=== PATIENT | female | born 1940 | race Caucasian/White ===

== ENCOUNTER 2017-11-28 12:49 | Inpatient (IN) | payer MEDICARE, BC, OTHER ==
[2017-11-28] MEDS: NS 500 ML IV (13:15)
[2017-11-28 13:26] LABS: BASO % 0.2 % (0.0-1.0); HEMATOCRIT 41.4 % (36.0-47.0); HEMOGLOBIN 13.4 g/dl (12.0-15.5); IMMATURE GRANULOCYTE % 0.4 % (0-3.0); LYMPH # 0.6 10^3/uL (1.5-4.5); MEAN CORPUSCULAR HEMOGLOBIN 29.1 pg (27.0-33.0); MEAN CORPUSCULAR HGB CONC 32.4 g/dl (32.0-36.5); MONO # 0.7 10^3/uL (0.0-0.8); MONO % 5.7 % (0.0-5.0); NEUTROPHILS # 11.3 10^3/uL (1.8-7.7); NEUTROPHILS % 88.7 % (36.0-66.0); PLATELET COUNT, AUTOMATED 196 10^3/uL (150-450); RED CELL DISTRIBUTION WIDTH 13.1 % (11.5-14.5); WHITE BLOOD COUNT 12.7 10^3/uL (4.0-10.0)
[2017-11-28 13:48] LABS: INR 1.01; PARTIAL THROMBOPLASTIN TIME 28.4 SECONDS (25.4-37.6); PROTHROMBIN TIME 13.4 SECONDS (12.1-14.4)
[2017-11-28 13:53] LABS: ALBUMIN 3.5 GM/DL (3.2-5.2); ALBUMIN/GLOBULIN RATIO 1.17 (1.00-1.93); ALKALINE PHOSPHATASE 63 U/L (45-117); ALT/SGPT 29 U/L (12-78); AMYLASE 43 U/L (25-115); ANION GAP 7 MEQ/L (8-16); AST/SGOT 25 U/L (7-37); BILIRUBIN,DIRECT 0.2 MG/DL (0.0-0.2); BILIRUBIN,TOTAL 0.7 MG/DL (0.2-1.0); BLOOD UREA NITROGEN 17 MG/DL (7-18); CALCIUM LEVEL 8.2 MG/DL (8.8-10.2); CARBON DIOXIDE LEVEL 26 MEQ/L (21-32); CHLORIDE LEVEL 108 MEQ/L (98-107); CPK CREATINE PHOSPHOKINASE 373 U/L (26-192); CREATININE FOR GFR 0.53 MG/DL (0.55-1.30); GLOMERULAR FILTRATION RATE > 60.0 (>39); GLUCOSE, FASTING 156 MG/DL (70-100); LIPASE 111 U/L (73-393); SODIUM LEVEL 141 MEQ/L (136-145); TOTAL PROTEIN 6.5 GM/DL (6.4-8.2); TROPONIN I < 0.02 NG/ML (< 0.10)
[2017-11-28 13:54] LABS: CK-MB VALUE MASS 2.1 NG/ML (<3.6); MB/CK RELATIVE INDEX 0.56 (< OR =4)
[2017-11-28] MEDS ORDERED: ISOVUE-370 76% 100ML VIAL (Q9967) As Ordered (14:01)
[2017-11-28] MEDS: PROMETHAZINE INJ 25 MG/ML VIAL (J2550) IV (14:14)
[2017-11-28 19:21] LABS: CPK CREATINE PHOSPHOKINASE 360 U/L (26-192); TROPONIN I < 0.02 NG/ML (< 0.10)
[2017-11-28 19:22] LABS: CK-MB VALUE MASS 1.1 NG/ML (<3.6)
[2017-11-28 19:41] LABS: KETONE, URINE AUTO RFX NEGATIVE (NEGATIVE); LEUKOCYTE ESTERASE UR AUTO RFX NEGATIVE (NEGATIVE); MUCUS, URINE RFX SMALL (NEGATIVE); NITRITE, URINE AUTO RFX NEGATIVE (NEGATIVE); RBC, URINE AUTO RFX 2 /HPF (0-3); SQUAM EPITHELIAL CELL UR AURFX 1 /HPF (0-6); WBC, URINE AUTO RFX 1 /HPF (0-3)
[2017-11-28 20:18] LABS: SPECIFIC GRAVITY UR AUTO RFX >1.060 (1.002-1.035)
[2017-11-28] MEDS: LISINOPRIL 20 MG TAB PO (20:54)
[2017-11-28] MEDS: PANTOPRAZOLE 40MG INJ (PROTONIX) (C9113) IV (20:54)
[2017-11-28] MEDS: NS 1,000 ML IV (20:54)
[2017-11-28] MEDS: CARVedilol 12.5 MG TAB PO (20:55)
[2017-11-29] MEDS: ACETAMINOPHEN TAB 650MG DOSE (2X325MG) PO ×3 (00:07→13:59)
[2017-11-29 02:12] LABS: BASO % 0.1 % (0.0-1.0); HEMATOCRIT 39.5 % (36.0-47.0); HEMOGLOBIN 12.8 g/dl (12.0-15.5); IMMATURE GRANULOCYTE % 0.4 % (0-3.0); LYMPH # 0.8 10^3/uL (1.5-4.5); MEAN CORPUSCULAR HEMOGLOBIN 29.4 pg (27.0-33.0); MEAN CORPUSCULAR HGB CONC 32.4 g/dl (32.0-36.5); MEAN CORPUSCULAR VOLUME 90.6 fl (80.0-96.0); MONO # 1.6 10^3/uL (0.0-0.8); NEUTROPHILS # 13.3 10^3/uL (1.8-7.7); NEUTROPHILS % 84.5 % (36.0-66.0); PLATELET COUNT, AUTOMATED 165 10^3/uL (150-450); RED BLOOD COUNT 4.36 10^6/uL (4.00-5.40); RED CELL DISTRIBUTION WIDTH 13.3 % (11.5-14.5); WHITE BLOOD COUNT 15.8 10^3/uL (4.0-10.0)
[2017-11-29 02:30] LABS: ESTIMATED AVERAGE GLUCOSE 126 MG/DL (60-110)
[2017-11-29 02:46] LABS: ALBUMIN 3.1 GM/DL (3.2-5.2); ALBUMIN/GLOBULIN RATIO 1.19 (1.00-1.93); ALKALINE PHOSPHATASE 57 U/L (45-117); ALT/SGPT 39 U/L (12-78); ANION GAP 7 MEQ/L (8-16); AST/SGOT 33 U/L (7-37); BILIRUBIN,TOTAL 0.9 MG/DL (0.2-1.0); BLOOD UREA NITROGEN 18 MG/DL (7-18); CALCIUM LEVEL 7.8 MG/DL (8.8-10.2); CARBON DIOXIDE LEVEL 27 MEQ/L (21-32); CHLORIDE LEVEL 108 MEQ/L (98-107); CK-MB VALUE MASS < 1.0 NG/ML (<3.6); CPK CREATINE PHOSPHOKINASE 304 U/L (26-192); CPK CREATINE PHOSPHOKINASE 314 U/L (26-192); CREATININE FOR GFR 0.65 MG/DL (0.55-1.30); GLOMERULAR FILTRATION RATE > 60.0 (>39); GLUCOSE, FASTING 152 MG/DL (70-100); MB/CK RELATIVE INDEX 0.32 (< OR =4); POTASSIUM SERUM 3.8 MEQ/L (3.5-5.1); SODIUM LEVEL 142 MEQ/L (136-145); TOTAL PROTEIN 5.7 GM/DL (6.4-8.2); TROPONIN I < 0.02 NG/ML (< 0.10)
[2017-11-29] MEDS: NS 1,000 ML IV (06:39)
[2017-11-29] MEDS ORDERED: MEROPENEM INJ 500 MG in APPROPRIATE DILUENT 1 EA IV (07:15)
[2017-11-29] MEDS ORDERED: DEXTROSE 50% 50 ML SYRINGE IV (07:30)
[2017-11-29] MEDS ORDERED: GLUCAGON FOR INJ 1 MG VIAL (J1610) SC (07:30)
[2017-11-29] MEDS ORDERED: GLUCOSE 4 GM CHEW TABLET PO (07:30)
[2017-11-29] MEDS ORDERED: GI COCKTAIL 50ML BTL(HYOSCYAMINE/MAALOX/LIDOCAINE VISCOUS)(1:3:1) PO (07:30)
[2017-11-29] MEDS: GI COCKTAIL 50ML BTL(HYOSCYAMINE/MAALOX/LIDOCAINE VISCOUS)(1:3:1) PO (08:00)
[2017-11-29 08:12] LABS: ERYTHROCYTE SEDIMENTATION RATE 11 mm/hr (0-30)
[2017-11-29 08:13] LABS: AMYLASE 24 U/L (25-115)
[2017-11-29 08:15] LABS: LIPASE 54 U/L (73-393)
[2017-11-29 08:19] LABS: LACTIC ACID SEPSIS PROTOCOL 1.4 MMOL/L (0.4-2.0)
[2017-11-29] MEDS: CARVedilol 12.5 MG TAB PO ×2 (08:26→21:55)
[2017-11-29] MEDS: ASPIRIN 81 MG ENTERIC TAB PO (08:26)
[2017-11-29] MEDS: SUCRALFATE SUSP 1GM/10ML UD PO ×4 (08:26→20:08)
[2017-11-29] MEDS: LISINOPRIL 20 MG TAB PO ×2 (08:26→21:00)
[2017-11-29] MEDS: CLOPIDOGREL 75 MG TAB PO (08:27)
[2017-11-29] MEDS: MEROPENEM INJ 1 GM in APPROPRIATE DILUENT 1 EA IV ×3 (08:27→23:23)
[2017-11-29 11:10] LABS: CPK CREATINE PHOSPHOKINASE 305 U/L (26-192); LIPASE 55 U/L (73-393); TROPONIN I < 0.02 NG/ML (< 0.10)
[2017-11-29 11:11] LABS: CK-MB VALUE MASS 1.4 NG/ML (<3.6); MB/CK RELATIVE INDEX 0.45 (< OR =4)
[2017-11-29] MEDS ORDERED: PERCOCET 5MG/325MG TAB PO (11:30)
[2017-11-29] MEDS ORDERED: MORPHINE 4 MG/ML 1ML VIAL/SYRINGE (J2270) IV (11:30)
[2017-11-29 11:55] LABS: BEDSIDE GLUCOSE 144 MG/DL (83-110)
[2017-11-29] MEDS: D5W/0.45% SODIUM CHLORIDE 1,000 ML IV ×2 (12:28→21:56)
[2017-11-29] MEDS: HumaLOG INSULIN (NovoLOG) PER UNIT SC ×3 (12:30→23:22)
[2017-11-29 17:06] LABS: BEDSIDE GLUCOSE 142 MG/DL (83-110)
[2017-11-29] MEDS: PERCOCET 5MG/325MG TAB PO (18:13)
[2017-11-29] MEDS: NICOTINE POLACRILEX 2 MG GUM PO (20:08)
[2017-11-29] MEDS: PANTOPRAZOLE 40MG INJ (PROTONIX) (C9113) IV (20:08)
[2017-11-29 21:37] LABS: BEDSIDE GLUCOSE 158 MG/DL (83-110)
[2017-11-29 23:19] LABS: BEDSIDE GLUCOSE 130 MG/DL (83-110)
[2017-11-30 04:42] LABS: BEDSIDE GLUCOSE 153 MG/DL (83-110)
[2017-11-30 05:56] LABS: BASO % 0.2 % (0.0-1.0); HEMATOCRIT 34.6 % (36.0-47.0); IMMATURE GRANULOCYTE % 0.9 % (0-3.0); LYMPH % 6.2 % (24.0-44.0); MEAN CORPUSCULAR HEMOGLOBIN 29.5 pg (27.0-33.0); MEAN CORPUSCULAR HGB CONC 31.8 g/dl (32.0-36.5); MEAN CORPUSCULAR VOLUME 92.8 fl (80.0-96.0); MONO # 1.5 10^3/uL (0.0-0.8); MONO % 9.7 % (0.0-5.0); NEUTROPHILS # 13.1 10^3/uL (1.8-7.7); PLATELET COUNT, AUTOMATED 131 10^3/uL (150-450); RED BLOOD COUNT 3.73 10^6/uL (4.00-5.40); RED CELL DISTRIBUTION WIDTH 13.4 % (11.5-14.5); WHITE BLOOD COUNT 15.8 10^3/uL (4.0-10.0)
[2017-11-30 06:11] LABS: ALBUMIN 2.5 GM/DL (3.2-5.2); ALBUMIN/GLOBULIN RATIO 0.81 (1.00-1.93); ALKALINE PHOSPHATASE 53 U/L (45-117); ALT/SGPT 30 U/L (12-78); ANION GAP 4 MEQ/L (8-16); AST/SGOT 15 U/L (7-37); BILIRUBIN,TOTAL 0.8 MG/DL (0.2-1.0); BLOOD UREA NITROGEN 19 MG/DL (7-18); CALCIUM LEVEL 7.8 MG/DL (8.8-10.2); CARBON DIOXIDE LEVEL 29 MEQ/L (21-32); CHLORIDE LEVEL 107 MEQ/L (98-107); CREATININE FOR GFR 0.62 MG/DL (0.55-1.30); GLOMERULAR FILTRATION RATE > 60.0 (>39); GLUCOSE, FASTING 148 MG/DL (70-100); POTASSIUM SERUM 3.8 MEQ/L (3.5-5.1); SODIUM LEVEL 140 MEQ/L (136-145); TOTAL PROTEIN 5.6 GM/DL (6.4-8.2)
[2017-11-30 06:25] LABS: MAGNESIUM LEVEL 1.9 MG/DL (1.8-2.4)
[2017-11-30 06:25] LABS: PHOSPHORUS LEVEL 1.7 MG/DL (2.5-4.9)
[2017-11-30] MEDS: HumaLOG INSULIN (NovoLOG) PER UNIT SC ×4 (06:35→20:21)
[2017-11-30] MEDS: D5W/0.45% SODIUM CHLORIDE 1,000 ML IV (06:35)
[2017-11-30] MEDS: SUCRALFATE SUSP 1GM/10ML UD PO ×2 (07:34→11:53)
[2017-11-30] MEDS: MEROPENEM INJ 1 GM in APPROPRIATE DILUENT 1 EA IV ×3 (08:16→23:36)
[2017-11-30] MEDS: LISINOPRIL 20 MG TAB PO ×2 (08:16→20:21)
[2017-11-30] MEDS: PERCOCET 5MG/325MG TAB PO ×3 (08:18→22:11)
[2017-11-30] MEDS: CARVedilol 12.5 MG TAB PO ×3 (08:18→20:27)
[2017-11-30] MEDS ORDERED: FUROSEMIDE 20 MG/2 ML VIAL (J1940) IV (12:00)
[2017-11-30 12:02] LABS: BEDSIDE GLUCOSE 152 MG/DL (83-110)
[2017-11-30] MEDS: SODIUM PHOSPHATE INJ 30 MMOL in D5W 500 ML IV (12:23)
[2017-11-30] MEDS ORDERED: fentaNYL 100 MCG/2 ML INJECTION (J3010) As Ordered ×3 (13:10→17:07)
[2017-11-30] MEDS ORDERED: MIDAZOLAM INJ 2 MG/2 ML VIAL (J2250) As Ordered (13:10)
[2017-11-30] MEDS ORDERED: ROCURONIUM BROMIDE 50 MG/5 ML VIAL As Ordered (13:12)
[2017-11-30] MEDS ORDERED: LIDOCAINE 2% INJ 100 MG/5 ML SDV (FOR ANES.) As Ordered (13:12)
[2017-11-30] MEDS ORDERED: PROPOFOL 200 MG/20 ML VIAL As Ordered (13:12)
[2017-11-30] MEDS ORDERED: ePHEDrine SULFATE 25 MG/5 ML(5MG/ML) SYRINGE As Ordered (14:21)
[2017-11-30] MEDS ORDERED: PHENYLephrine HCL 500 MCG/5 ML (100MCG/ML) SYRINGE (J2370) As Ordered (14:21)
[2017-11-30] MEDS ORDERED: METOCLOPRAMIDE INJ 10MG/2ML VIAL (J2765) As Ordered (14:36)
[2017-11-30] MEDS ORDERED: NEOSTIGMINE 10 MG/10 ML VIAL (J2710) As Ordered (14:39)
[2017-11-30] MEDS ORDERED: GLYCOPYRROLATE INJ 0.2 MG/ML 2 ML VIAL As Ordered (14:39)
[2017-11-30] MEDS ORDERED: ONDANSETRON 4MG/2ML VIAL (J2405) As Ordered (14:39)
[2017-11-30] MEDS: BUPIVACAINE HCL 0.25% 30 ML VIAL As Ordered (15:55)
[2017-11-30 16:24] LABS: BEDSIDE GLUCOSE 187 MG/DL (83-110)
[2017-11-30] MEDS ORDERED: MORPHINE 4 MG/ML 1ML VIAL/SYRINGE (J2270) IV (16:30)
[2017-11-30] MEDS ORDERED: LR 1,000 ML IV (16:45)
[2017-11-30] MEDS ORDERED: ONDANSETRON 4MG/2ML VIAL (J2405) IV (16:45)
[2017-11-30] MEDS ORDERED: NORCO, ANEXSIA 5/325MG TABLET (HYDROcodone/ACETAMINOPHEN) PO (16:45)
[2017-11-30] MEDS ORDERED: PERCOCET 5MG/325MG TAB As Ordered (16:55)
[2017-11-30] MEDS: fentaNYL 100 MCG/2 ML INJECTION (J3010) IV (17:05)
[2017-11-30 18:09] LABS: BEDSIDE GLUCOSE 154 MG/DL (83-110)
[2017-11-30] MEDS: DOCUSATE SODIUM 100 MG CAP PO (20:21)
[2017-11-30 20:25] LABS: BEDSIDE GLUCOSE 131 MG/DL (83-110)
[2017-11-30] MEDS: ONDANSETRON 4MG/2ML VIAL (J2405) IV (23:36)
[2017-12-01] MEDS: ACETAMINOPHEN TAB 650MG DOSE (2X325MG) PO ×4 (02:19→17:39)
[2017-12-01 06:16] LABS: BASO % 0.1 % (0.0-1.0); EOS # 0.1 10^3/uL (0.0-0.50); EOS % 0.5 % (0.0-3.0); HEMATOCRIT 34.1 % (36.0-47.0); HEMOGLOBIN 10.7 g/dl (12.0-15.5); IMMATURE GRANULOCYTE % 0.8 % (0-3.0); LYMPH # 0.9 10^3/uL (1.5-4.5); LYMPH % 7.1 % (24.0-44.0); MEAN CORPUSCULAR HEMOGLOBIN 29.3 pg (27.0-33.0); MEAN CORPUSCULAR HGB CONC 31.4 g/dl (32.0-36.5); MEAN CORPUSCULAR VOLUME 93.4 fl (80.0-96.0); MONO # 1.1 10^3/uL (0.0-0.8); MONO % 8.1 % (0.0-5.0); NEUTROPHILS % 83.4 % (36.0-66.0); PLATELET COUNT, AUTOMATED 144 10^3/uL (150-450); RED BLOOD COUNT 3.65 10^6/uL (4.00-5.40); RED CELL DISTRIBUTION WIDTH 13.2 % (11.5-14.5); WHITE BLOOD COUNT 13.2 10^3/uL (4.0-10.0)
[2017-12-01 06:37] LABS: ALBUMIN 2.3 GM/DL (3.2-5.2); ALBUMIN/GLOBULIN RATIO 0.68 (1.00-1.93); ALKALINE PHOSPHATASE 66 U/L (45-117); ALT/SGPT 30 U/L (12-78); ANION GAP 4 MEQ/L (8-16); AST/SGOT 18 U/L (7-37); BILIRUBIN,TOTAL 0.5 MG/DL (0.2-1.0); BLOOD UREA NITROGEN 15 MG/DL (7-18); CARBON DIOXIDE LEVEL 29 MEQ/L (21-32); CHLORIDE LEVEL 106 MEQ/L (98-107); CREATININE FOR GFR 0.49 MG/DL (0.55-1.30); GLOMERULAR FILTRATION RATE > 60.0 (>39); GLUCOSE, FASTING 108 MG/DL (70-100); POTASSIUM SERUM 3.9 MEQ/L (3.5-5.1); SODIUM LEVEL 139 MEQ/L (136-145); TOTAL PROTEIN 5.7 GM/DL (6.4-8.2)
[2017-12-01] MEDS: LISINOPRIL 20 MG TAB PO ×2 (08:25→20:44)
[2017-12-01] MEDS: PANTOPRAZOLE 40MG TAB (PROTONIX) PO (08:25)
[2017-12-01] MEDS: DOCUSATE SODIUM 100 MG CAP PO ×2 (08:25→20:44)
[2017-12-01] MEDS: CARVedilol 12.5 MG TAB PO ×2 (08:25→20:44)
[2017-12-01] MEDS: MEROPENEM INJ 1 GM in APPROPRIATE DILUENT 1 EA IV ×3 (08:26→23:09)
[2017-12-01] MEDS: HumaLOG INSULIN (NovoLOG) PER UNIT SC ×4 (08:26→20:50)
[2017-12-01 12:06] LABS: BEDSIDE GLUCOSE 105 MG/DL (83-110)
[2017-12-01 17:24] LABS: BEDSIDE GLUCOSE 122 MG/DL (83-110)
[2017-12-01] MEDS: BISACODYL 5 MG TAB PO (17:39)
[2017-12-01] MEDS: PERCOCET 5MG/325MG TAB PO (20:44)
[2017-12-01 20:51] LABS: BEDSIDE GLUCOSE 173 MG/DL (83-110)
[2017-12-02] MEDS: ONDANSETRON 4MG/2ML VIAL (J2405) IV ×2 (04:17→10:00)
[2017-12-02 06:34] LABS: BEDSIDE GLUCOSE 116 MG/DL (83-110)
[2017-12-02] MEDS: ACETAMINOPHEN TAB 650MG DOSE (2X325MG) PO ×2 (06:39→22:01)
[2017-12-02] MEDS: HumaLOG INSULIN (NovoLOG) PER UNIT SC ×4 (07:59→21:00)
[2017-12-02] MEDS: MEROPENEM INJ 1 GM in APPROPRIATE DILUENT 1 EA IV ×2 (08:00→17:00)
[2017-12-02] MEDS: DOCUSATE SODIUM 100 MG CAP PO ×2 (08:00→22:00)
[2017-12-02] MEDS: CARVedilol 12.5 MG TAB PO ×2 (08:01→22:00)
[2017-12-02] MEDS: ASPIRIN 81 MG ENTERIC TAB PO (08:01)
[2017-12-02] MEDS: CLOPIDOGREL 75 MG TAB PO (08:01)
[2017-12-02] MEDS: LISINOPRIL 20 MG TAB PO ×2 (08:02→22:00)
[2017-12-02] MEDS: PANTOPRAZOLE 40MG TAB (PROTONIX) PO (08:02)
[2017-12-02 09:06] LABS: BASO % 0.3 % (0.0-1.0); EOS # 0.1 10^3/uL (0.0-0.50); HEMOGLOBIN 11.7 g/dl (12.0-15.5); IMMATURE GRANULOCYTE % 0.3 % (0-3.0); LYMPH # 0.9 10^3/uL (1.5-4.5); MEAN CORPUSCULAR HEMOGLOBIN 29.2 pg (27.0-33.0); MEAN CORPUSCULAR HGB CONC 32.5 g/dl (32.0-36.5); MEAN CORPUSCULAR VOLUME 89.8 fl (80.0-96.0); MONO # 0.6 10^3/uL (0.0-0.8); MONO % 7.6 % (0.0-5.0); NEUTROPHILS # 6.1 10^3/uL (1.8-7.7); NEUTROPHILS % 78.8 % (36.0-66.0); PLATELET COUNT, AUTOMATED 198 10^3/uL (150-450); RED BLOOD COUNT 4.01 10^6/uL (4.00-5.40); WHITE BLOOD COUNT 7.7 10^3/uL (4.0-10.0)
[2017-12-02 09:47] LABS: ANION GAP 6 MEQ/L (8-16); BLOOD UREA NITROGEN 12 MG/DL (7-18); CALCIUM LEVEL 7.9 MG/DL (8.8-10.2); CARBON DIOXIDE LEVEL 31 MEQ/L (21-32); CHLORIDE LEVEL 106 MEQ/L (98-107); CREATININE FOR GFR 0.44 MG/DL (0.55-1.30); GLOMERULAR FILTRATION RATE > 60.0 (>39); GLUCOSE, FASTING 110 MG/DL (70-100); SODIUM LEVEL 143 MEQ/L (136-145)
[2017-12-02 11:37] LABS: BEDSIDE GLUCOSE 137 MG/DL (83-110)
[2017-12-02 16:29] LABS: BEDSIDE GLUCOSE 87 MG/DL (83-110)
[2017-12-02 21:14] LABS: BEDSIDE GLUCOSE 131 MG/DL (83-110)
[2017-12-02] MEDS: metroNIDAZOLE (FLAGYL) 500 MG TAB PO (22:00)
[2017-12-02] MEDS: CEFDINIR 300 MG CAP (OMNICEF) PO (22:00)
[2017-12-03 06:58] LABS: BASO % 0.3 % (0.0-1.0); EOS # 0.1 10^3/uL (0.0-0.50); EOS % 1.2 % (0.0-3.0); HEMATOCRIT 35.2 % (36.0-47.0); HEMOGLOBIN 11.5 g/dl (12.0-15.5); LYMPH # 1.3 10^3/uL (1.5-4.5); LYMPH % 22.7 % (24.0-44.0); MEAN CORPUSCULAR HEMOGLOBIN 29.6 pg (27.0-33.0); MEAN CORPUSCULAR HGB CONC 32.7 g/dl (32.0-36.5); MEAN CORPUSCULAR VOLUME 90.5 fl (80.0-96.0); MONO # 0.7 10^3/uL (0.0-0.8); MONO % 12.9 % (0.0-5.0); NEUTROPHILS # 3.5 10^3/uL (1.8-7.7); NEUTROPHILS % 61.9 % (36.0-66.0); PLATELET COUNT, AUTOMATED 198 10^3/uL (150-450); RED BLOOD COUNT 3.89 10^6/uL (4.00-5.40); WHITE BLOOD COUNT 5.7 10^3/uL (4.0-10.0)
[2017-12-03 07:05] LABS: ANION GAP 4 MEQ/L (8-16); BLOOD UREA NITROGEN 10 MG/DL (7-18); CARBON DIOXIDE LEVEL 33 MEQ/L (21-32); CHLORIDE LEVEL 107 MEQ/L (98-107); CREATININE FOR GFR 0.49 MG/DL (0.55-1.30); GLOMERULAR FILTRATION RATE > 60.0 (>39); GLUCOSE, FASTING 120 MG/DL (70-100); POTASSIUM SERUM 3.9 MEQ/L (3.5-5.1); SODIUM LEVEL 144 MEQ/L (136-145)
[2017-12-03] MEDS: HumaLOG INSULIN (NovoLOG) PER UNIT SC (07:30)
[2017-12-03] MEDS: DOCUSATE SODIUM 100 MG CAP PO (08:11)
[2017-12-03] MEDS: CEFDINIR 300 MG CAP (OMNICEF) PO (08:11)
[2017-12-03] MEDS: ASPIRIN 81 MG ENTERIC TAB PO (08:11)
[2017-12-03] MEDS: CARVedilol 12.5 MG TAB PO (08:11)
[2017-12-03] MEDS: CLOPIDOGREL 75 MG TAB PO (08:12)
[2017-12-03] MEDS: metroNIDAZOLE (FLAGYL) 500 MG TAB PO (08:12)
[2017-12-03] MEDS: PANTOPRAZOLE 40MG TAB (PROTONIX) PO (08:12)
[2017-12-03] MEDS: LISINOPRIL 20 MG TAB PO (08:12)
== END 2017-12-03 11:45 | disposition home or self-care (01) | DRG 854 ==
LOC: M MS5PR 12-01 21:27 → M ED 12:49 → M ED INP 17:51 → M PCU 19:51
PROC: 0FT44ZZ Resection of Gallbladder, Percutaneous Endoscopic Approach (ICD-10-PCS; principal; 2017-11-30 09:46)
DX: A41.9 Sepsis, unspecified organism (principal); K81.0 Acute cholecystitis; E11.9 Type 2 diabetes mellitus without complications; I10 Essential (primary) hypertension; I25.10 Atherosclerotic heart disease of native coronary artery without angina pectoris; Z95.2 Presence of prosthetic heart valve; E78.5 Hyperlipidemia, unspecified; K21.9 Gastro-esophageal reflux disease without esophagitis; Z85.118 Personal history of other malignant neoplasm of bronchus and lung; I83.90 Asymptomatic varicose veins of unspecified lower extremity; Z79.82 Long term (current) use of aspirin; Z79.899 Other long term (current) drug therapy; Z88.0 Allergy status to penicillin; Z88.8 Allergy status to other drugs, medicaments and biological substances